=== PATIENT | female | born 1970 | race African-American/Black ===

== ENCOUNTER 2018-03-09 12:16 | Emergency (ER) | payer OTHER ==
[~2018-03-09] VITALS: Ht 162.6 cm; Wt 78.9 kg
[~2018-03-09 12:16] MED LIST: AMBIEN 5 MG TABL5 M1 PO; AVAPRO 150 MG150 M1 PO; AVAPRO 150 MG150 MG PO; EFFEXOR XR150 MG PO; GLYCOPYRROLATE 11 MG PO; HYDROCODONE-AP1 EAC6 PO; LOPRESSOR25 PO; NORGESTIMATE-E1 EAC1 PO; SEROQUEL 100 M100 MG PO; VALIUM5 MG PO; [UNRECOGNIZED DRUG - OTHER]
[2018-03-09] MEDS ORDERED: CYMBALTA60 MG PO (12:23)
[2018-03-09] MEDS ORDERED: BENTYL 10 MG CA10 M1 PO (12:24)
[2018-03-09] MEDS ORDERED: TRAMADOL 50 MG50 MG PO (13:15)
== END 2018-03-09 13:36 | disposition home or self-care (01) ==
LOC: ER 12:16
DX: S83.8X1A Sprain of other specified parts of right knee, initial encounter (principal); S40.012A Contusion of left shoulder, initial encounter; S09.8XXA Other specified injuries of head, initial encounter; I10 Essential (primary) hypertension; F32.9 Major depressive disorder, single episode, unspecified; F17.210 Nicotine dependence, cigarettes, uncomplicated; Z88.5 Allergy status to narcotic agent; W10.8XXA Fall (on) (from) other stairs and steps, initial encounter; Y93.89 Activity, other specified; Y92.89 Other specified places as the place of occurrence of the external cause; Y99.8 Other external cause status

== ENCOUNTER 2021-10-13 13:06 | Emergency (ER) | payer OTHER ==
[~2021-10-13] VITALS: Ht 162.6 cm; Wt 77.1 kg
[~2021-10-13 13:06] MED LIST changes: +BENTYL 10 MG CA10 M1 PO; +CYMBALTA60 MG PO; +TRAMADOL 50 MG50 MG PO
[2021-10-13 16:18] VITALS: BP 164/105
[2021-10-13 21:13] LABS: ABSOLUTE NEUTROPHILS 4.7 thou/uL (1.4-8.2); BASOPHILS 0.6 % (0.0-2.0); EOSINOPHILS 0.5 % (0.0-3.0); HEMATOCRIT 39.5 % (37.0-47.0); HEMOGLOBIN 13.6 gm/dL (12.0-15.0); LYMPHOCYTES 41.2 % (24.0-44.0); MCH 32.5 pg (26.0-34.0); MCHC 34.4 g/dL (28.0-37.0); MCV 94.7 fL (80.0-100.0); MONOCYTES 8.6 % (1.0-8.0); PLATELET COUNT 366 thou/uL (150-400); POLYS 49.1 % (36.0-66.0); RBC 4.17 mil/uL (4.20-5.00); RDW 12.5 % (10.5-14.5); WBC 9.6 thou/uL (4.0-11.0)
[2021-10-13 21:25] LABS: CALCIUM 9.3 mg/dL (8.5-10.1); CREATININE 0.8 mg/dL (0.6-1.0); POTASSIUM 3.3 mmol/L (3.5-5.1)
[2021-10-13 21:31] LABS: ALBUMIN 3.9 g/dL (3.4-5.0); TOTAL BILIRUBIN 0.2 mg/dL (0.2-1.0); TOTAL PROTEIN 7.8 g/dL (6.4-8.2)
[2021-10-13 22:13] LABS: URINE BILIRUBIN 2+ (Negative); URINE BLOOD NEGATIVE (Negative); URINE CLARITY CLOUDY; URINE GLUCOSE-RANDOM* NEGATIVE (Negative); URINE KETONES 1+ (Negative); URINE LEUKOCYTES-REFLEX NEGATIVE (Negative); URINE NITRITE-REFLEX NEGATIVE (Negative); URINE PROTEIN (DIPSTICK) 2+ (Negative); URINE SPECIFIC GRAVITY 1.025 (1.005-1.035); URINE UROBILINOGEN 0.2 E.U./dl (0.2-1.0)
[2021-10-13 22:16] LABS: URINE COLOR YELLOW
[2021-10-13 22:36] LABS: BACTERIA-REFLEX >30 Many /HPF (None Seen); CASTS None Seen /LPF (None Seen); CRYSTALS None Seen /LPF (None Seen); MUCUS 0-3 Light strn/LPF (None Seen); SQUAMOUS 4-10 Moderate /LPF (0-3); URINE RBC 1-2 Rare /HPF (NONE SEEN); URINE WBC-REFLEX 6-15 Few /HPF (0-5)
[2021-10-13] MEDS ORDERED: BACTRIM DS TAB1 EACH PO (23:04)
[2021-10-13] MEDS ORDERED: ZOFRAN ODT4 MG PO (23:04)
== END 2021-10-14 00:31 | disposition home or self-care (01) ==
LOC: ER 13:06
PROVIDERS: Nurse Practitioner; Student in an Organized Health Care Education/Training Program
DX: N39.0 Urinary tract infection, site not specified (principal); Z20.822 Contact with and (suspected) exposure to COVID-19; R11.2 Nausea with vomiting, unspecified; E87.6 Hypokalemia; I10 Essential (primary) hypertension; F32.9 Major depressive disorder, single episode, unspecified; F17.210 Nicotine dependence, cigarettes, uncomplicated; Z79.899 Other long term (current) drug therapy; Z88.8 Allergy status to other drugs, medicaments and biological substances; Z88.5 Allergy status to narcotic agent